=== PATIENT | female | born 1990 | race Hispanic/Latino ===

== ENCOUNTER 2020-05-07 10:05 | Outpatient (CLI) | payer MEDICAID ==
--- NOTE | 2020-05-07 10:59 | ULT ---
PELVIC ULTRASOUND: Endovaginal ultrasound of pelvis performed. INDICATION: Ovarian cyst. COMPARISON: No comparison. FINDINGS: Uterus has a normal sonographic appearance. Endometrial stripe is normal measuring 7-8 mm. Left ovarian cyst measures 4.0 to 5.0 cm. Left ovary shows normal blood flow with color Doppler and spectral analysis. There are 2 adjacent cysts in the right ovary, each measuring approximately 1.5 to 2.0 cm. Color Dop pler with spectral analysis demonstrates normal blood flow to the right ovary. No significant free fluid. IMPRESSION: 1. Large left simple ovarian cyst measuring up to 5 cm. 2. Two smaller right ovarian cysts. POS: AGW
== END 2020-05-07 10:06 | disposition home or self-care (01) ==
LOC: BICULT 10:05
PROVIDERS: ATTEND General Practice
DX: N83.291 Other ovarian cyst, right side (principal); N83.292 Other ovarian cyst, left side
CPT/HCPCS: 76856

== ENCOUNTER 2023-04-05 14:12 | Outpatient (CLI) | payer MEDICAID | END 2023-04-05 14:13 | disposition home or self-care (01) | LOC: BICMAMMO 14:12 | PROVIDERS: ATTEND Nurse Practitioner Family | DX: N64.4 Mastodynia (principal) | CPT/HCPCS: 77066; G0279 ==

== ENCOUNTER 2023-06-29 09:56 | Emergency (ER) | payer BC, MEDICAID ==
[2023-06-29 10:57] LABS: SARS-CoV-2 NAA Rapid Test Not Detected (NotDetected)
== END 2023-06-29 11:29 | disposition home or self-care (01) ==
LOC: ERS 09:56
DX: J10.1 Influenza due to other identified influenza virus with other respiratory manifestations (principal)
CPT/HCPCS: 99283